=== PATIENT | female | born 1945 | race Caucasian/White ===

== ENCOUNTER 2017-02-14 12:18 | Observation (INO) | payer OTHER ==
[~2017-02-14] VITALS: Ht 154.9 cm; Wt 61.8 kg
[2017-02-14] VITALS (9 sets, daily range): BP systolic 122–147; BP diastolic 65–80; PULSE 72–107; RESP 16–20; TEMP 98–98.6; O2SAT 94–98
--- NOTE | 2017-02-14 12:36 | PD ---
HPI Chief Complaint: episode left shoulder and neck pain. Time Seen by Provider: 12:35 Travel History International Travel<30 days: No Contact w/Intl Traveler<30days: No History of Present Illness HPI 71-year-old female presents the emergency department with reports of pain in the left shoulder radiating to the neck and back while going to the gym this morning. Patient states pain gradually lessened with rest but lasted approximately 30 minutes. Patient was not doing upper body exercises at the time that it began. Patient took a full aspirin, and some water which seemed to alleviate her pain. Upon arrival here she is slightly tachycardic but pain free. Patient has no previous cardiac history. Patient states that after shoulder and neck pain subsided she had some indigestion sensation. Patient does have a history of thyroid problems. She is allergic to penicillin. PFSH Past Medical History Thyroid Disease: Yes Social History Alcohol Use: Yes Tobacco Use: No Substance Use: No Allergies-Medications (Allergen,Severity, Reaction): Coded Allergies: Penicillins (Verified Allergy, Unknown, 02/14/17) Review of Systems Except as stated in HPI: all other systems reviewed are Neg General / Constitutional: No: Fever Eyes: No: Visual changes HENT: No: Headaches Cardiovascular: Positive: Tachycardia, No: Chest Pain or Discomfort, Palpitations, Irregular Rhythm, Syncope, Dyspnea on exertion, Varicosities, Phlebitis, Claudication Respiratory: No: Shortness of Breath Gastrointestinal: Positive: Nausea (earlier, now resolved.), No: Abdominal Pain Genitourinary: No: Dysuria Musculoskeletal: Positive: Myalgias (left shoulder neck pain. Episodic.), No: Pain Skin: No Rash Neurologic: No: Weakness Psychiatric: No: Depression Endocrine: No: Polydipsia Hematologic/Lymphatic: No: Easy Bruising Physical Exam Narrative GENERAL: Patient appears somewhat anxious but otherwise in no acute distress. SKIN: Warm and dry. Normal color. Normal turgor. No diaphoresis. HEAD: Atraumatic. Normocephalic. EYES: Pupils equal and round. No scleral icterus. No injection or drainage. ENT: No nasal bleeding or discharge. Mucous membranes pink and moist. Pharynx is clear. Airway is patent. NECK: Trachea midline. No JVD. Supple and nontender. CARDIOVASCULAR: Tachycardic rate and normal rhythm. RESPIRATORY: No accessory muscle use. Clear to auscultation. Breath sounds equal bilaterally. GASTROINTESTINAL: Abdomen soft, non-tender, nondistended. Hepatic and splenic margins not palpable. MUSCULOSKELETAL: Extremities without clubbing, cyanosis, or edema. No obvious deformities. NEUROLOGICAL: Awake and alert. No obvious cranial nerve deficits. Motor grossly within normal limits. Five out of 5 muscle strength in the arms and legs. Normal speech. PSYCHIATRIC: Appropriate mood and affect; insight and judgment normal. Data Data Last Documented VS Vital Signs Date Time Temp Pulse Resp B/P (MAP) Pulse Ox O2 Delivery O2 Flow Rate FiO2 02/14/17 13:01 89 16 130/77 (94) 98 Room Air 122/70 (87) 02/14/17 12:27 98.6 Orders Orders Electrocardiogram (02/14/17 12:39) Ckmb (Isoenzyme) Profile (02/14/17 12:39) Complete Blood Count With Diff (02/14/17 12:39) Comprehensive Metabolic Panel (02/14/17 12:39) Magnesium (Mg) (02/14/17 12:39) Prothrombin Time / Inr (Pt) (02/14/17 12:39) Act Partial Throm Time (Ptt) (02/14/17 12:39) Troponin I (02/14/17 12:39) Chest, Single Ap (02/14/17 12:39) Ecg Monitoring (02/14/17 12:39) Bilateral Bp Monitoring (02/14/17 12:39) Iv Access Insert/Monitor (02/14/17 12:39) Oximetry (02/14/17 12:39) Oxygen Administration (02/14/17 12:39) Sodium Chloride 0.9% Flush (Ns Flush) (02/14/17 12:45) Sodium Chlorid 0.9% 500 Ml Inj (Ns 500 M (02/14/17 12:45) Thyroid Stimulating Hormone (02/14/17 12:50) Admit Order (Ed Use Only) (02/14/17 13:38) Labs Laboratory Tests Test 02/14/17 12:50 White Blood Count 8.4 TH/MM3 Red Blood Count 4.78 MIL/MM3 Hemoglobin 15.1 GM/DL Hematocrit 44.2 % Mean Corpuscular Volume 92.4 FL Mean Corpuscular Hemoglobin 31.5 PG Mean Corpuscular Hemoglobin Concent 34.0 % Red Cell Distribution Width 12.8 % Platelet Count 174 TH/MM3 Mean Platelet Volume 10.7 FL Neutrophils (%) (Auto) 65.9 % Lymphocytes (%) (Auto) 24.2 % Monocytes (%) (Auto) 6.5 % Eosinophils (%) (Auto) 1.5 % Basophils (%) (Auto) 1.9 % Neutrophils # (Auto) 5.6 TH/MM3 Lymphocytes # (Auto) 2.0 TH/MM3 Monocytes # (Auto) 0.5 TH/MM3 Eosinophils # (Auto) 0.1 TH/MM3 Basophils # (Auto) 0.2 TH/MM3 CBC Comment DIFF FINAL Differential Comment Prothrombin Time 9.9 SEC Prothromb Time International Ratio 0.9 RATIO Activated Partial Thromboplast Time 26.7 SEC Blood Urea Nitrogen 14 MG/DL Creatinine 0.68 MG/DL Random Glucose 91 MG/DL Total Protein 6.6 GM/DL Albumin 3.4 GM/DL Calcium Level 9.1 MG/DL Magnesium Level 2.6 MG/DL Alkaline Phosphatase 110 U/L Aspartate Amino Transf (AST/SGOT) 17 U/L Alanine Aminotransferase (ALT/SGPT) 20 U/L Total Bilirubin 0.4 MG/DL Sodium Level 140 MEQ/L Potassium Level 3.6 MEQ/L Chloride Level 106 MEQ/L Carbon Dioxide Level 25.1 MEQ/L Anion Gap 9 MEQ/L Estimat Glomerular Filtration Rate 86 ML/MIN Total Creatine Kinase 41 U/L Troponin I LESS THAN 0.02 NG/ML Thyroid Stimulating Hormone 3rd Gen 0.765 uIU/ML MDM Medical Decision Making Medical Screen Exam Complete: Yes Emergency Medical Condition: Yes Differential Diagnosis Hyperthyroid. Atypical chest pain. Unstable angina. Cardiac syndrome. Narrative Course Patient is medically stable at time of exam. Patient is currently pain free and has taken aspirin just prior to arrival. Cardiac panel and TSH is ordered, an IV access is obtained. EKG and chest x-ray is ordered. Patient is given 500 mL normal saline bolus. EKG shows no significant findings with a normal sinus rhythm at 83 beats per minute. This is reviewed with Dr. Ortiz. CBC is unremarkable. Chest x-ray is unremarkable for acute process per radiologist. CMP is unremarkable. First troponin is less than 0.02. Patient is recommended to be admitted to the chest pain center for further rule out. Call was placed to Dr. Batres for admission to the chest pain center. 1400 hrs. patient was discussed with Dr. Batres, who will admit the patient to the chest pain center. Diagnosis Primary Impression: Chest pain at rest Admitting Information Admitting Physician Requests: Observation Condition: Stable Den Medrano Feb 14, 2017 12:36
[2017-02-14] MEDS ORDERED: SODIUM CHLORID 0.9% 500 ML INJ 500 ML IV ONE (12:45)
[2017-02-14] MEDS ORDERED: SODIUM CHLORIDE 0.9% FLUSH 10 ML FLUSH IVF PRN (12:45)
[2017-02-14 13:13] LABS: AUTOMATED NEUTROPHIL # 5.6 TH/MM3 (1.8-7.7); BASOPHIL # 0.2 TH/MM3 (0-0.2); BASOPHIL % 1.9 % (0.0-2.0); EOSINOPHIL # 0.1 TH/MM3 (0-0.4); EOSINOPHIL % 1.5 % (0.0-4.0); HEMATOCRIT 44.2 % (35.0-46.0); HEMO FLAGS DIFF FINAL; LYMPH % 24.2 % (9.0-44.0); MEAN CELL VOLUME 92.4 FL (80.0-100.0); MEAN CORPUSCULAR HEMOGLOBIN 31.5 PG (27.0-34.0); MONO % 6.5 % (0.0-8.0); NEUT % 65.9 % (16.0-70.0); PLATELET COUNT 174 TH/MM3 (150-450); RED BLOOD COUNT 4.78 MIL/MM3 (4.00-5.30); RED CELL DISTRIBUTION WIDTH 12.8 % (11.6-17.2); WHITE BLOOD COUNT 8.4 TH/MM3 (4.0-11.0)
[2017-02-14 13:20] LABS: CHLORIDE 106 MEQ/L (98-107); POTASSIUM 3.6 MEQ/L (3.5-5.1); SODIUM (NA) 140 MEQ/L (136-145)
[2017-02-14 13:23] LABS: ANION GAP 9 MEQ/L (5-15); BICARBONATE 25.1 MEQ/L (21.0-32.0)
[2017-02-14 13:24] LABS: BLOOD UREA NITROGEN 14 MG/DL (7-18); MAGNESIUM 2.6 MG/DL (1.5-2.5)
[2017-02-14 13:25] LABS: APTT (PATIENT) 26.7 SEC (24.3-30.1); INTERNATIONAL NORMALIZED RATIO 0.9 RATIO; PROTHROMBIN TIME - PATIENT 9.9 SEC (9.8-11.6)
[2017-02-14 13:27] LABS: ALT (GPT) 20 U/L (10-53); AST (GOT) 17 U/L (15-37); GLOMERULAR FILTRATION RATE 86 ML/MIN (>89)
[2017-02-14 13:28] LABS: TOTAL BILIRUBIN ADULT 0.4 MG/DL (0.2-1.0)
[2017-02-14 13:29] LABS: ALKALINE PHOSPHATASE 110 U/L (45-117)
--- NOTE | 2017-02-14 13:29 | RADRPT ---
EXAM DATE/TIME: 02/14/2017 13:13 [place] COMPARISON: No previous studies available for comparison. INDICATIONS : Sudden onset of left upper chest area pain today MEDICAL HISTORY : None. SURGICAL HISTORY : None. ENCOUNTER: Initial ACUITY: 1 day PAIN SCORE: 4/10 LOCATION: Left upper chest FINDINGS: A single view of the chest demonstrates the lungs to be symmetrically aerated without evidence of mas s, infiltrate or effusion. The cardiomediastinal contours are unremarkable. Osseous structures are intact. CONCLUSION: Normal examination. Emir Ibarra MD on February 14, 2017 at 13:26 Board Certified Radiologist. This report was verified electronically.
[2017-02-14 13:35] LABS: CREATINE KINASE 41 U/L (26-192)
[2017-02-14] MEDS ORDERED: SODIUM CHLORIDE 0.9% FLUSH 10 ML FLUSH IV FLUSH PRN (14:15)
[2017-02-14] MEDS ORDERED: NITROGLYCERIN 0.4 MG SL 25 TABS/BTL SL PRN (14:15)
[2017-02-14] MEDS ORDERED: MORPHINE SULFATE 4 MG/ML INJ IV PUSH PRN (14:15)
[2017-02-14] MEDS ORDERED: ONDANSETRON HCL 4 MG/2 ML VIAL IV PUSH PRN (14:15)
[2017-02-14 17:46] LABS: CREATINE KINASE 36 U/L (26-192)
--- NOTE | 2017-02-14 18:16 | HHI.HP ---
[facility] Service [facility] Primary Care Physician Miguel Styles Admission Diagnosis Chest Pain Diagnoses: (1) Chest pain Diagnosis: Principal (2) Hyperlipidemia Diagnosis: Principal Chief Complaint: Shoulder and neck pain Travel History International Travel<30 Days: No Contact w/Intl Traveler <30 Da: No Traveled to Known Affected Are: No History of Present Illness 71-year-old female with known history of hyperlipidemia presented to hospital because of shoulder and neck pain. Patient states that she was in normal state of health while she was driving to the [facility] today in order to workup. She started developing soreness in her left shoulder and upper arm. She get on the bicycle in started pedaling in the pain started to radiate from her shoulder into her left trapezius and go around her neck. The pain was persistent without any resolution. The patient stopped using bicycle and she sat down to do some leg exercises and the pain was persistent. She took one of her husbands aspirin and chewed it and drove herself to the hospital. Patient states that she did have the pain on presentation to the emergency department. She states the pain started approximately 1145 this morning and she got to the hospital approximately 12:15. The pain did resolve while she was in the emergency department. Patient not receive any medication for the resolution. Patient denied any actual chest pain. She denied any nausea, vomiting, diaphoresis, shortness of breath, dyspnea, lightheadedness, dizziness. Patient had workup done emergency department and found to have negative troponin, is recommended by ER physician that the patient be observed in the chest pain center. Review of Systems Musculoskeletal: COMPLAINS OF: Muscle aches Past Family Social History Past Medical History Hyperlipidemia Past Surgical History Partial hysterectomy Partial thyroidectomy Tonsillectomy Reported Medications Patient not taking any prescription medications Allergies: Coded Allergies: Penicillins (Verified Allergy, Unknown, 02/14/17) Family History Reviewed is significant for father in his 60s from myocardial infarction, mother at age 80 from breast cancer Social History Patient denies any tobacco, alcohol illicit drugs Physical Exam Vital Signs Vital Signs Date Time Temp Pulse Resp B/P (MAP) Pulse Ox O2 Delivery O2 Flow Rate FiO2 02/14/17 18:06 96 21 02/14/17 17:58 98.0 78 18 140/72 (94) 96 02/14/17 14:00 82 16 147/78 (101) 97 Room Air 02/14/17 13:01 89 16 130/77 (94) 98 Room Air 122/70 (87) 02/14/17 12:54 Room Air 02/14/17 12:54 Room Air 02/14/17 12:27 98.6 107 16 136/80 (98) 96 Room Air Physical Exam GENERAL: Well-developed, well-nourished, in no acute distress. alert and orientated HEENT: Head is normocephalic without any lesions or masses noted. Facial features are symmetric. Eyes: Pupils equal round reactive to light. Extraocular muscles are intact. Conjunctivae were clear. Oropharyngeal: Pharynx without any erythema edema. Tongue is midline without deviation. Buccal mucosa is moist without any masses or lesions. Patient does have palpable soreness noted over the left trapezius musculature as well as the paraspinal musculature from C3 to C7. NECK: Supple without any masses. Trachea midline no deviation. No JVD, no bruits are appreciated CARDIAC: Regular rhythm, regular rate. S1/S2 are heard. No murmurs gallops or rubs. LUNGS: Clear to auscultation bilaterally. No wheeze, rhonchi or rales. No use of accessory muscles on inspiration or expiration. ABDOMEN: Soft, nontender. Nondistended. Bowel sounds heard in all 4 quadrants. No organomegaly or masses. Negative rebound, negative guarding EXTREMITIES: No edema, pulses are equal bilaterally. No cyanosis or clubbing NEUROLOGY: Mood and affect appear appropriate. Cranial nerves II through XII grossly intact. Muscle strength 5/5 in upper and lower extremities bilaterally. Deep tendon reflexes are 2+ in upper and lower extremities bilaterally. Laboratory Laboratory Tests Test 02/14/17 12:50 02/14/17 17:15 White Blood Count 8.4 Red Blood Count 4.78 Hemoglobin 15.1 Hematocrit 44.2 Mean Corpuscular Volume 92.4 Mean Corpuscular Hemoglobin 31.5 Mean Corpuscular Hemoglobin Concent 34.0 Red Cell Distribution Width 12.8 Platelet Count 174 Mean Platelet Volume 10.7 Neutrophils (%) (Auto) 65.9 Lymphocytes (%) (Auto) 24.2 Monocytes (%) (Auto) 6.5 Eosinophils (%) (Auto) 1.5 Basophils (%) (Auto) 1.9 Neutrophils # (Auto) 5.6 Lymphocytes # (Auto) 2.0 Monocytes # (Auto) 0.5 Eosinophils # (Auto) 0.1 Basophils # (Auto) 0.2 CBC Comment DIFF FINAL Differential Comment Prothrombin Time 9.9 Prothromb Time International Ratio 0.9 Activated Partial Thromboplast Time 26.7 Blood Urea Nitrogen 14 Creatinine 0.68 Random Glucose 91 Total Protein 6.6 Albumin 3.4 Calcium Level 9.1 Magnesium Level 2.6 Alkaline Phosphatase 110 Aspartate Amino Transf (AST/SGOT) 17 Alanine Aminotransferase (ALT/SGPT) 20 Total Bilirubin 0.4 Sodium Level 140 Potassium Level 3.6 Chloride Level 106 Carbon Dioxide Level 25.1 Anion Gap 9 Estimat Glomerular Filtration Rate 86 Total Creatine Kinase 41 36 Troponin I LESS THAN 0.02 LESS THAN 0.02 Thyroid Stimulating Hormone 3rd Gen 0.765 Result Diagram: 02/14/17 1250 02/14/17 1250 Imaging Last Impressions Chest X-Ray 02/14/17 1239 Signed Impressions: Service Date/Time: Tuesday, February 14, 2017 13:13 - CONCLUSION: Normal examination. Emir Ibarra MD Capcandyi VTE Risk Assessment Caprini VTE Risk Assessment: Mod/High Risk (score >= 2) Caprini Risk Assessment Model Point Value = 1 Point Value = 2 Point Value = 3 Point Value = 5 Age 41-60 Minor surgery BMI > 25 kg/m2 Swollen legs Varicose veins or History of unexplained or recurrent spontaneous Oral contraceptives or hormone replacement Sepsis (< 1 month) Serious lung disease, including pneumonia (< 1 month) Abnormal pulmonary function Acute myocardial infarction Congestive heart failure (< 1 month) History of inflammatory bowel disease Medical patient at bed rest Age 61-74 Arthroscopic surgery Major open surgery (> 45 min) Laparoscopic surgery (> 45 min) Malignancy Confined to bed (> 72 hours) Immobilizing plaster cast Central venous access Age >= 75 History of VTE Family history of VTE Factor V Leiden Prothrombin [id number] Lupus anticoagulant Anticardiolipin antibodies Elevated serum homocysteine Heparin-induced thrombocytopenia Other congenital or acquired thrombophilia Stroke (< 1 month) Elective arthroplasty Hip, pelvis, or leg fracture Acute spinal cord injury (< 1 month) Prophylaxis Regimen Total Risk Factor Score Risk Level Prophylaxis Regimen 0-1 Low Early ambulation 2 Moderate Order ONE of the following: *Sequential Compression Device (SCD) *Heparin 5000 units SQ BID 3-4 Higher Order ONE of the following medications: *Heparin 5000 units SQ TID *Enoxaparin/Lovenox 40 mg SQ daily (WT < 150 kg, CrCl > 30 mL/min) *Enoxaparin/Lovenox 30 mg SQ daily (WT < 150 kg, CrCl > 10-29 mL/min) *Enoxaparin/Lovenox 30 mg SQ BID (WT < 150 kg, CrCl > 30 mL/min) AND/OR *Sequential Compression Device (SCD) 5 or more Highest Order ONE of the following medications: *Heparin 5000 units SQ TID (Preferred with Epidurals) *Enoxaparin/Lovenox 40 mg SQ daily (WT < 150 kg, CrCl > 30 mL/min) *Enoxaparin/Lovenox 30 mg SQ daily (WT < 150 kg, CrCl > 10-29 mL/min) *Enoxaparin/Lovenox 30 mg SQ BID (WT < 150 kg, CrCl > 30 mL/min) AND *Sequential Compression Device (SCD) Assessment and Plan Assessment and Plan Left arm pain, neck pain possible angina component Patient has have increased risk factors include age, family history of heart disease, hyperlipidemia We'll rule out for acute coronary event with serial cardiac enzymes and serial EKGs will pursue exercise stress test in the morning to rule out any underlying ischemia Continue aspirin, nitroglycerin as needed, morphine for pain control DVT prevention Sequential compression devices Antonio Rowley Feb 14, 2017 18:16
[2017-02-14 20:22] LABS: CREATINE KINASE 42 U/L (26-192)
[2017-02-14] MEDS: SODIUM CHLORIDE 0.9% FLUSH 10 ML FLUSH IV FLUSH SCH (20:28)
[2017-02-15 00:09] VITALS: BP 142/69; PULSE 73; RESP 16; TEMP 97.9; O2SAT 93
[2017-02-15 04:48] VITALS: BP 129/63; PULSE 77; RESP 18; TEMP 97.7; O2SAT 96
[2017-02-15 08:42] VITALS: O2SAT 96
[2017-02-15] MEDS ORDERED: ASPIRIN 325 MG TAB PO SCH (09:00)
[2017-02-15] MEDS: SODIUM CHLORIDE 0.9% FLUSH 10 ML FLUSH IV FLUSH SCH (09:00)
[2017-02-15 09:46] VITALS: BP 124/88; PULSE 107; RESP 15; TEMP 98; O2SAT 96
--- NOTE | 2017-02-15 10:16 | TR ---
Date Performed: 02/15/2017 Time Performed: 08:59:37 DOCTOR: Wily Bacon DRUG LIST: CLINICAL HISTORY: REASON FOR TEST: REASON FOR ENDING: Completed Protocol OBSERVATION: Arrhythmia: None Chest Pain: None CONCLUSION: Patient tolerated JERI protocol with Total Exercise Time=6:01 Maximum CD=270 % Targ et HR Qnjsojoz=827.0% Maximum SV=940/82, Testing stoped secondary to goals acheived, patient reached target HR. During peak exercise, patient was asymptomatic, No significant ST depressions, quick upslo ping ST segments. HR and BP appropriate response to exercise. Recovery period, HR and BP returned to baseline COMMENTS: Conclusion: Normal treadmill exercise. No evidence of ischemia.
--- NOTE | 2017-02-15 11:54 | HHI.PR ---
Subjective Remarks No further arm or neck pain. Objective Vitals Vital Signs Date Time Temp Pulse Resp B/P (MAP) Pulse Ox O2 Delivery O2 Flow Rate FiO2 02/15/17 09:46 98.0 107 15 124/88 (100) 96 02/15/17 08:42 96 21 02/15/17 08:42 96 21 02/15/17 04:48 97.7 77 18 129/63 (85) 96 02/15/17 00:09 97.9 73 16 142/69 (93) 93 02/14/17 20:09 98.6 75 20 130/65 (86) 94 02/14/17 20:00 72 02/14/17 19:46 97 21 02/14/17 18:06 96 21 02/14/17 17:58 98.0 78 18 140/72 (94) 96 02/14/17 16:40 75 16 135/77 (96) 02/14/17 14:00 82 16 147/78 (101) 97 Room Air 02/14/17 13:01 89 16 130/77 (94) 98 Room Air 122/70 (87) 02/14/17 12:54 Room Air 02/14/17 12:54 Room Air 02/14/17 12:27 98.6 107 16 136/80 (98) 96 Room Air I/O 02/14/17 02/14/17 02/14/17 02/15/17 02/15/17 02/15/17 07:00 15:00 23:00 07:00 15:00 23:00 Intake Total 500 ml 240 ml Balance 500 ml 240 ml Intake Oral 240 ml IV Total 500 ml # Voids 3 2 Result Diagram: 02/14/17 1250 02/14/17 1250 Objective Remarks GENERAL: Well-nourished, well-developed pleasant female patient. SKIN: Warm and dry. HEAD: Normocephalic. EYES: No scleral icterus. No injection or drainage. NECK: Supple, trachea midline. No JVD or lymphadenopathy. CARDIOVASCULAR: Regular rate and rhythm without murmurs, gallops, or rubs. RESPIRATORY: Breath sounds equal bilaterally. No accessory muscle use. GASTROINTESTINAL: Abdomen soft, non-tender, nondistended. EXTREMITIES: No cyanosis, or edema. NEUROLOGICAL: Awake, alert, and oriented x 3. Non-focal. A/P Problem List: (1) Chest pain ICD Code: R07.9 - Chest pain, unspecified (2) Hyperlipidemia ICD Code: E78.5 - Hyperlipidemia, unspecified Assessment and Plan Left arm pain and neck pain, resolved. Serial cardiac enzymes and EKG negative. She passed her exercise treadmill test today. Advised to continue lifestyle modification of hyperlipidemia and continue exercise. Advised to follow-up with her primary care physician this week. Discharge home. Lubna Batres MD Feb 15, 2017 11:54
--- NOTE | 2017-02-15 13:50 | EKG ---
Date Performed: 02/14/2017 Time Performed: 17:31:30 PTAGE: 71 years EKG: Sinus rhythm WITH OCCASIONAL SUPRAVENTRICULAR PREMATURE COMPLEXES BORDERLINE ECG PREVIOUS TRACING : 02/14/2017 13.07 Since previous tracing, no significant change noted DOCTOR: Wily Bacon Interpretating Date/Time 02/15/2017 13:49:24
--- NOTE | 2017-02-15 13:51 | EKG ---
Date Performed: 02/14/2017 Time Performed: 13:07:54 PTAGE: 71 years EKG: Sinus rhythm NORMAL ECG NO PREVIOUS TRACING DOCTOR: Wily Bacon Interpretating Date/Time 02/15/2017 13:49:35
== END 2017-02-15 13:29 | disposition home or self-care (01) ==
LOC: PHEFT 12:18 → PHEDA 13:40 → PH3B 17:41
PROVIDERS: ADMIT Family Medicine; ATTEND Family Medicine
DX: R07.89 Other chest pain (principal); M79.602 Pain in left arm; M54.2 Cervicalgia; E78.5 Hyperlipidemia, unspecified; R00.0 Tachycardia, unspecified; E07.9 Disorder of thyroid, unspecified; Z82.49 Family history of ischemic heart disease and other diseases of the circulatory system
CPT/HCPCS: 71010; 80053; 82550; 83735; 84443; 84484; 85025; 85610; 85730; 93005; 93017; 96360; 99285; G0378; J7040